=== PATIENT | female | born 1990 | race Hispanic/Latino ===

== ENCOUNTER 2021-12-10 19:24 | Outpatient (CLI) | payer MEDICAID ==
[2021-12-10 19:53] VITALS: BP 100/61
[2021-12-10] MEDS ORDERED: LACTATED RINGERS 1,000 ML ONE (20:06)
[2021-12-10 21:16] LABS: Basophils # (Auto) 0.1 K/mm3 (0.0-0.1); Basophils % (Auto) 0.5 % (0.0-1.8); Eosinophils # (Auto) 0.1 K/mm3 (0.0-0.4); Eosinophils % (Auto) 0.6 % (0.0-4.3); Hematocrit 34.5 % (30.3-42.9); Hemoglobin 11.4 gm/dl (10.1-14.3); Lymphocytes # (Auto) 2.2 K/mm3 (1.2-5.4); Lymphocytes % (Auto) 16.7 % (13.4-35.0); Mean Corpuscular HGB Conc 33 % (30-34); Mean Corpuscular Volume 85 fl (79-97); Monocytes # (Auto) 0.7 K/mm3 (0.0-0.8); Monocytes % (Auto) 5.1 % (0.0-7.3); Platelet Count 203 K/mm3 (140-440); Red Blood Count 4.07 M/mm3 (3.65-5.03); Red Cell Distribution Width 15.6 % (13.2-15.2)
[2021-12-10 22:41] LABS: Amphetamine Screen,Urine TNR; Benzodiazepines Screen,Urine TNR; Cannabinoid Screen,Urine TNR; Cocaine Screen,Urine TNR; Methadone Screen,Urine TNR; Opiate Screen,Urine TNR
[2021-12-10 22:45] LABS: Color,Urine TNR (Yellow)
[2021-12-10 22:46] LABS: Bacteria,Urine TNR /HPF (Negative); RBC,Urine TNR /HPF (0.0-6.0); WBC,Urine TNR /HPF (0.0-6.0)
[2021-12-10 23:08] LABS: RBC,Urine < 1.0 /HPF (0.0-6.0)
[2021-12-10 23:09] LABS: Amphetamine Screen,Urine Negative; Benzodiazepines Screen,Urine Negative; Cannabinoid Screen,Urine Negative; Cocaine Screen,Urine Negative; Methadone Screen,Urine Negative; Opiate Screen,Urine Negative
[2021-12-10 23:10] LABS: Color,Urine Colorless (Yellow)
[2021-12-10] MEDS ORDERED: ACETAMINOPHEN 325 MG TAB PO PRN (23:27)
[2021-12-10] MEDS ORDERED: ONDANSETRON 4 MG/2 ML INJ IV PRN (23:27)
[2021-12-10] MEDS ORDERED: oxyCODONE /ACETAMINOPHEN 5-325MG TAB PO PRN (23:27)
--- NOTE | 2021-12-10 23:31 | History and Physical Report ---
History of Present Illness Date of examination: 12/10/21 Date of admission: 12/10/2021 Chief complaint: my heart rate is high History of present illness: Patient is a at 33w6d presenting with complaint of elevated heart rate. Notes her watch was going off saying her resting heart rate in 120s and up to 150s with standing. Notes dizziness, but denies shortness of breath. Also complains of pain in her upper abdomen, unsure if contractions. +FM. No LOF or vaginal bleeding. 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 Past History Past Medical History: no pertinent history Past Surgical History: no surgical history Family/Genetic History: none Social history: no significant social history - Obstetrical History : 4 Para: 3 Hx # Term Pregnancies: 3 Number of Pregnancies: 0 Spontaneous Abortions: 0 Induced : 0 Number of Living Children: 3 Medications and Allergies Allergies Allergy/AdvReac Type Severity Reaction Status Date / Time No Known Allergies Allergy Unverified 12/30/16 09:50 Active Meds: Active Medications Acetaminophen (Acetaminophen 325 Mg Tab) 650 mg PO Q4H PRN PRN Reason: Pain MILD(1-3)/Fever >100.5/H[place]ISON Ondansetron HCl (Ondansetron 4 Mg/2 Ml Inj) 4 mg IV Q8H PRN PRN Reason: Nausea And Vomiting Oxycodone/Acetaminophen (Oxycodone /Acetaminophen 5-325mg Tab) 1 tab PO Q6H PRN PRN Reason: Pain, Moderate (4-6) Sodium Chloride (Sodium Chloride 0.9% 10 Ml Flush Syringe) 10 ml IV BID TISHA Sodium Chloride (Sodium Chloride 0.9% 10 Ml Flush Syringe) 10 ml IV PRN PRN PRN Reason: LINE FLUSH Review of Systems Cardiovascular: rapid/irregular heart beat, lightheadedness Genitourinary: contractions - Vital Signs Vital signs: Vital Signs Temp Pulse 98.1 F 100 H 12/10/21 19:40 12/10/21 19:40 Temp Pulse Resp BP Pulse Ox 98.1 F 101 H 100/61 94 12/10/21 19:40 12/10/21 23:28 12/10/21 19:52 12/10/21 23:28 Results Result Diagrams: 12/10/21 19:36 Abnormal lab results 12/10/21 12/10/21 Range/Units 19:36 22:30 WBC 12.9 H (4.5-11.0) K/mm3 RDW 15.6 H (13.2-15.2) % Seg Neutrophils % 77.1 H (40.0-70.0) % Seg Neutrophils # 10.0 H (1.8-7.7) K/mm3 Specific [place] 1.000 L (1.003-1.030) All other labs normal. Assessment and Plan - Patient Problems (1) Rapid heart rate Status: Acute Plan to address problem: CBC as above EKG notable for ectopic atrial beats, reviewed by hospitalist and noted to be WNL Plan to admit to observation for further evaluation of continued intermittent tachycardia Consult Cardiology TSH Prior to completion of admission, patient signed out AMA stating she feels fine and this has happened in the past and she saw a personnel arbitrator., Prior to leaving states she will see them again.
--- NOTE | 2021-12-11 13:14 | Electrocardiograph Report ---
[facility] Test Date: 2021-12-10 Test Time: 20:19:41 Pat Name: MORIAH QUINONES Department: Room: Gender: F Primary Special Educator: Guillermo ALEJO : 1990 Requested By: SHANELLE GARSIA Order Number: [id number] Reading MD: Emelina Ulloa Measurements Intervals [place] Rate: 101 P: -68 WA: 151 QRS: 59 QRSD: 89 T: 11 QT: 348 QTc: 452 Interpretive Statements Ectopic atrial tachycardia, unifocal No previous ECG available for comparison Electronically Signed On 12-11-2021 13:14:29 EDT by Emelina Ulloa
== END 2021-12-10 23:48 | disposition home or self-care (01) ==
LOC: TRG 19:24 → APU 19:26 → TRG 23:48
PROVIDERS: ATTEND Student in an Organized Health Care Education/Training Program
DX: O26.893 Other specified pregnancy related conditions, third trimester (principal); R42 Dizziness and giddiness; Z3A.33 33 weeks gestation of pregnancy
CPT/HCPCS: 36415; 59025; 80307; 81001; 82731; 85025; 93005

== ENCOUNTER 2022-01-01 01:27 | Inpatient (IN) | payer MEDICAID ==
[2022-01-01] MEDS ORDERED: CARBOPROST TROMETHAMINE 250 MCG/1 ML INJ IM PRN (05:36)
[2022-01-01] MEDS ORDERED: METHYLERGONOVINE MALEATE 0.2 MG/ML VIAL IM PRN (05:36)
[2022-01-01] MEDS ORDERED: LIDOCAINE (2%) 20 MG/1 ML VIAL 20 ML MDV INFILTRATI ONE (05:36)
[2022-01-01] MEDS ORDERED: ePHEDrine SULFATE 50 MG/1 ML INJ IV PRN ×2 (05:36→19:32)
[2022-01-01] MEDS ORDERED: TERBUTALINE 1 MG/1 ML INJ SUB-Q PRN (05:36)
[2022-01-01] MEDS ORDERED: LOPERAMIDE 2 MG CAP PO PRN (05:36)
[2022-01-01] MEDS ORDERED: miSOPROStol 200 MCG TAB PR PRN (05:36)
[2022-01-01] MEDS ORDERED: ACETAMINOPHEN 325 MG TAB PO PRN (05:36)
[2022-01-01] MEDS ORDERED: ONDANSETRON 4 MG/2 ML INJ IV PRN (05:36)
[2022-01-01] MEDS ORDERED: NALOXONE 0.4 MG/1 ML INJ IV PRN ×2 (05:36→19:32)
[2022-01-01] MEDS ORDERED: OXYTOCIN 10 UNIT/1 ML INJ IM PRN (05:36)
[2022-01-01] MEDS ORDERED: PROMETHAZINE 25 MG TAB PO PRN (05:36)
[2022-01-01] MEDS ORDERED: MINERAL OIL 30 ML ORAL LIQD PO PRN (05:36)
[2022-01-01] MEDS ORDERED: NalbUPHINE 10 MG/1 ML INJ IV PRN (05:36)
[2022-01-01] MEDS ORDERED: BUTORPHANOL 2 MG/1 ML INJ IV PRN ×2 (05:36)
[2022-01-01] MEDS ORDERED: fentaNYL 100 MCG/2 ML INJ IV PRN (05:36)
--- NOTE | 2022-01-01 05:43 | History and Physical Report ---
History of Present Illness Date of examination: 01/01/22 Date of admission: 01/01/2022 Chief complaint: Painful regular contractions. History of present illness: Pt is a 31 y.o. @ 37 wks today who presented to triage for c/o contractions. 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 She walked for an hour and her cervical exam was the same. She continued to have regular painful contractions so she was admitted for therapeutic rest. For this , the patient has been followed by [facility] d/t maternal obesity and renal pyelectasis. pyelectasis has resolved. Her last growth u/s was on 12/02/2021 at 32 weeks. EFW was in the 78%(5-1). Also of note, she has a hx of maternal tachycardia. She was seen by the refractory tile helper on 12/26, wore a \Holter monitor, and was told that her testing so far has been normal. No f/u date has b een scheduled. EDC: 01/22/2022 Gestational Age: 37 weeks on admission Past History : 4 Term Births: 3 Premature Births: 0 Living Children: 3 Para: 3 Mult. Births: 0 Prev : 0 Aborta: 0 Elect. Ab: 0 Spont. Ab: 0 Ectopics: 0 # 1 Delivery date: 2010 Weeks Gestation: 40 labor: yes Delivery type: Hours of labor: 28 Anesthesia type: epidural Delivery location: [facility] Infant Sex: Female weight: 7lbs 7oz Comments: no complications # 2 Delivery date: 2015 Weeks Gestation: 40 labor: no Delivery type: Hours of labor: 12 Anesthesia type: epidural Delivery location: [facility] Infant Sex: Male weight: 7lbs 4oz Comments: no complications # 3 Delivery date: 2019 Weeks Gestation: 37 labor: no Delivery type: Hours of labor: 9 Anesthesia type: epidural Delivery location: [facility] Infant Sex: Male weight: 7lbs 12oz Comments: no complications Past Medical History: Reviewed and updated today: IBS- avoids triggers/food sensitivities Interstitial Cystitis- since 2014 Benign Tachcardia in - saw refractory tile helper 2019 and cleared Bipolar Disease with anxiety- on medications and sees Psychiatrist Past Surgical History: Reviewed and updated today: Negative Past Surgical History Family History Summary: Mother - Has Family History Breast Cancer - Entered On: 06/06/2021 General Comments - FH: Brother has cystic fibrosis, pt reports she's not a carrier MGF- bladder cancer Social History: Patient is Smoking History: Patient has never smoked. Risk Factors: Smoked Tobacco Use: Never smoker Smokeless Tobacco Use: Never Counseled to Quit/Cut Down: yes Passive Smoke Exposure: no HIV High Risk Behavior: no Caffeine Use: 1 drinks per day Exercise: no Exercise Counseling: yes Seatbelt Use: preg-alcoholic counselor % Family History Risk Factors: Family History of VA in 1 Female Relative Age < 65: no Family History of VA in 1 Male Relative Age < 55: no No Dietary Counseling Reason: pn yes Alcohol Use: no Drug Use: no Past Medical History Anesthesia Complications: negative Anemia: negative Autoimmune Disorder: negative Bleeding Disorder: negative Blood Transfusions: negative Breast Disease: negative Diabetes: negative Heart Disease: negative Hypertension: negative Hepatitis/Liver Disease: negative Kidney Disease/UTI: negative Neurologic/Epilepsy/Migraines: negative Phlebitis/Varicosities: negative Psychiatric: positive Pulmonary Disease/Asthma: negative Thyroid Disease: negative Surgery (Non-program aide): Negative Past Surgical History Abnormal PAP: positive, in 2015, normal since CIELO Exposure: negative Infertility: negative Uterine Anomaly: negative Uterine Surgery (not C/S): negative Other Gynecologic Problems: negative Family Hx: Brother has cystic fibrosis, pt reports she's not a carrier MGF- bladder cancer Social Hx: Patient is Smoking History: Patient has never smoked. Infection History Hx of STD: HPV HIV Risk Eval: no Hepatitis B Risk Eval: low risk Personal hx. of genital herpes: no Partner hx. of genital herpes: no Rash, Viral, or Febrile illness since last LMP? no Varicella/Chicken Pox Status: Immunized TB Risk: no Genetic History Congenital Heart Defect: Mom: no Dad: no Erik Disease: Mom: no Dad: no Thalassemia Mom: no Dad: no Neural Tube Defect Mom: no Dad: no Down's Syndrome Mom: no Dad: no Walter-Sachs Mom: no Dad: no Sickle Cell Disease/Trait Mom: no Dad: no Hemophilia Mom: no Dad: no Muscular Dystrophy Mom: no Dad: no Cystic Fibrosis Mom: no Dad: no Bryce Chorea Mom: no Dad: no Mental Retardation Mom: no Dad: no Fragile X Mom: no Dad: no Other Genetic/Chromosomal Disorder Mom: no Dad: no Child w/other defect Mom: no Dad: no Enviromental Exposures Enviromental Exposures Reviewed Xray Exposure: no Medication, drug, or alcohol use since LMP: no Chemical/Other Exposure: no Exposure to Cat Liter: no Hx of Parvovirus (Fifth Disease): no 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 Current Allergies (reviewed today): No known allergies Past History Past Medical History: other (IBS, Bi-polar with anxiety, Benign tachycardia in , Interstitial Cystitis) Past Surgical History: no surgical history VAMP CREASER History: other (Cystic Fibrosis) Family/Genetic History: cancer (Bladder and breast) Social history: no significant social history - Obstetrical History Expected Date of Delivery: 01/22/22 Actual Gestation: 37 Week(s) 0 Day(s) : 4 Para: 3 Hx # Term Pregnancies: 3 Number of Pregnancies: 0 Spontaneous Abortions: 0 Induced : 0 Number of Living Children: 3 Medications and Allergies Allergies Allergy/AdvReac Type Severity Reaction Status Date / Time No Known Allergies Allergy Unverified 12/30/16 09:50 Active Meds: Active Medications Acetaminophen (Acetaminophen 325 Mg Tab) 650 mg PO Q4H PRN PRN Reason: Pain, Mild (1-3) Butorphanol Tartrate (Butorphanol 2 Mg/1 Ml Inj) 1 mg IV Q2H PRN PRN Reason: Pain, Moderate(4-6) LABOR PAIN Butorphanol Tartrate (Butorphanol 2 Mg/1 Ml Inj) 2 mg IV Q2H PRN PRN Reason: Pain , Severe (7-10) Carboprost Tromethamine (Carboprost Tromethamine 250 Mcg/1 Ml Inj) 250 mcg IM ONCE PRN PRN Reason: Uterine Bleeding Ephedrine Sulfate (Ephedrine Sulfate 50 Mg/1 Ml Inj) 10 mg IV Q2M PRN PRN Reason: Hypotension Fentanyl (Fentanyl 100 Mcg/2 Ml Inj) 100 mcg IV Q2H PRN PRN Reason: Pain,Severe (7-10) LABOR PAIN Lactated Ringer's (Lactated Ringers) 1,000 mls @ 125 mls/hr IV DIRECT TISHA Oxytocin/Sodium Chloride (Pitocin/Ns 30 Unit/500ml) 30 units in 500 mls @ 40 mls/hr IV TITR TISHA; Protocol Lidocaine (Lidocaine (2%) 20 Mg/1 Ml Vial 20 Ml Mdv) 20 ml INFILTRATI ONCE ONE Stop: 01/01/22 05:37 Loperamide HCl (Loperamide 2 Mg Cap) 2 mg PO ONCE PRN PRN Reason: give with Hemabate Methylergonovine Maleate (Methylergonovine Maleate 0.2 Mg/Ml Vial) 0.2 mg IM ONCE PRN PRN Reason: Uterine Bleeding Mineral Oil (Mineral Oil 30 Ml Oral Liqd) 30 ml PO QHS PRN PRN Reason: Constipation Misoprostol (Misoprostol 200 Mcg Tab) 800 mcg NE ONCE PRN PRN Reason: Uterine Bleeding Nalbuphine HCl (Nalbuphine 10 Mg/1 Ml Inj) 10 mg IV Q2H PRN PRN Reason: Pain, Moderate (4-6) Naloxone HCl (Naloxone 0.4 Mg/1 Ml Inj) 0.1 mg IV Q2MIN PRN PRN Reason: Res Rate </= 8 or 02 SAT < 92% Ondansetron HCl (Ondansetron 4 Mg/2 Ml Inj) 4 mg IV Q8H PRN PRN Reason: Nausea And Vomiting Oxytocin (Oxytocin 10 Unit/1 Ml Inj) 10 unit IM ONCE PRN PRN Reason: Uterine Bleeding Promethazine HCl (Promethazine 25 Mg Tab) 25 mg PO Q6H PRN PRN Reason: Nausea And Vomiting Terbutaline Sulfate (Terbutaline 1 Mg/1 Ml Inj) 0.25 mg SUB-Q ONCE PRN PRN Reason: Hyperstimulation/Hypertonicity Review of Systems Genitourinary: contractions - Vital Signs Vital signs: Vital Signs Pulse BP Pulse Ox 100 H 130/72 98 01/01/22 02:13 01/01/22 02:13 01/01/22 02:13 Temp Pulse Resp BP Pulse Ox 98.2 F 116 H 122/72 96 01/01/22 02:17 01/01/22 05:36 01/01/22 05:29 01/01/22 05:36 - Physical Exam Cardiovascular: Regular rate Lungs: Positive: Normal air movement Abdomen: Positive: normal appearance, soft Genitourinary (Female): Positive: normal external genitalia, normal perenium Vulva: both: normal Vagina: Positive: normal moisture Uterus: Positive: enlarged (Normal uterus. ) Extremities: Positive: normal - Obstetrical FHR: category 1 Cervical Dilatation: 3.5 (No SROM.) Cervical Effacement Percentage: 50 station: -2 Uterine Contraction Frequency (min): 4-6 Uterine Contraction Duration: 60-90 Uterine Contraction Pattern: Regular Uterine Tone Measurement Phase: Resting Uterine Contraction Intensity: Mild Results Result Diagrams: 01/01/22 04:00 All other labs normal. GBS NEGATIVE HBsAg Screen Negative Negative *1 RPR Non Reactive Non Reactive *2 Rubella Antibodies, IgG [L] <0.90 index Immune >0.99 *3 Non-immune <0.90 Equivocal 0.90 - 0.99 Immune >0.99 ABO Grouping B *4 Rh Factor Positive *5 Please note: Prior records for this patient's ABO / Rh type are not available for additional verification. Antibody Screen Negative Negative *6 WBC [H] 11.7 x10E3/uL 3.4-10.8 *7 RBC 4.24 x10E6/uL 3.77-5.28 *8 Hemoglobin 11.7 g/dL 11.1-15.9 *9 Hematocrit 36.1 % 34.0-46.6 *10 MCV 85 fL 79-97 *11 MCH 27.6 pg 26.6-33.0 *12 MCHC 32.4 g/dL 31.5-35.7 *13 RDW 13.1 % 11.7-15.4 *14 Platelets 295 x10E3/uL 150-450 *15 Neutrophils 71 % Not Estab. *16 Lymphs 23 % Not Estab. *17 Monocytes 4 % Not Estab. *18 Eos 1 % Not Estab. *19 Basos 0 % Not Estab. *20 ! Immature Cells <No Reported Value> *21 Neutrophils (Absolute) [H] 8.2 x10E3/uL 1.4-7.0 *22 Lymphs (Absolute) 2.7 x10E3/uL 0.7-3.1 *23 Monocytes(Absolute) 0.5 x10E3/uL 0.1-0.9 *24 Eos (Absolute) 0.1 x10E3/uL 0.0-0.4 *25 Baso (Absolute) 0.0 x10E3/uL 0.0-0.2 *26 ! Immature Granulocytes 1 % Not Estab. *27 ! Immature Grans (Abs) 0.1 x10E3/uL 0.0-0.1 *28 ! NRBC <No Reported Value> *29 Hematology Comments: <No Reported Value> *30 Tests: (4) HB Solu + Rflx Fra (187518) Hemoglobin (Hgb) Solubility Negative Negative *44 Tests: (5) HIV Ab/p24 Ag with Reflex ([id number]) HIV Ab/p24 Ag Screen Non Reactive Non Reactive *45 HIV Negative HIV-1/HIV-2 antibodies and HIV-1 p24 antigen were NOT detected. There is no laboratory evidence of HIV infection. Tests: (6) Varicella-Zoster V Ab, IgG ([id number]) ! Varicella Zoster IgG 449 index Immune >165 *46 Negative <135 Equivocal 135 - 165 Positive >165 A positive result generally indicates exposure to the pathogen or administration of specific immunoglobulins, but it is not indication of active infection or stage of disease. Tests: (7) HCV Antibody reflex to HILARIO ([id number]) HCV Ab <0.1 s/co ratio 0.0-0.9 *47 Tests: (8) Interpretation: ([id number]) ! Interpretation: SPRCS *48 Negative Not infected with HCV, unless recent infection is suspected or other evidence exists to indicate HCV infection. Effective August 26, 2021 HCV Antibody reflex to HILARIO will be made non-orderable. This will affect any Custom Profile that includes [id number] HCV Antibody reflex to HILARIO. [facility] offers order code [id number] HCV Antibody RFX to Quant PCR as an alternative. Assessment and Plan A: 31 y.o. @ 37 wks, early labor. Bi-polar disorder, maternal tachycardia, obesity. - Patient Problems (1) 37 weeks gestation of Current Visit: Yes Status: Acute Plan to address problem: Admit to labor and delivery for therapeutic rest. Initiate IV. Draw admission labs. Pain management: IV pain medication if contraction pain becomes more painful an d regular. - Epidural order placed if patient goes into active labor. Reassess cervix after administration of medication and after patient rest. Will admit for labor if pt becomes active. Continuous EFM. (2) Bipolar 1 disorder Current Visit: Yes Status: Acute Plan to address problem: After delivery, will need EPDS. Monitor for s/sx of depression. (3) Obesity complicating Current Visit: Yes Status: Acute Qualifiers: Trimester: third trimester Qualified Code(s): O99.213 - Obesity complicating , third trimester Plan to address problem: When in active labor, consider AROM and placement of internals if there is difficulty tracing heart rate. (4) Rapid heart rate Current Visit: Yes Status: Acute Plan to address problem: Monitor maternal heart rate during admission.
[2022-01-01] MEDS ORDERED: LACTATED RINGERS 1,000 ML IV SCH (05:45)
[2022-01-01] MEDS ORDERED: OXYTOCIN DRIP 30 UNITS/500 ML BAG IV SCH ×2 (06:00→17:00)
[2022-01-01 07:07] LABS: Hemoglobin 11.3 gm/dl (10.1-14.3); Mean Corpuscular HGB Conc 33 % (30-34); Mean Corpuscular Volume 85 fl (79-97); Platelet Count 177 K/mm3 (140-440); Red Blood Count 4.01 M/mm3 (3.65-5.03); Red Cell Distribution Width 15.9 % (13.2-15.2)
--- NOTE | 2022-01-01 07:57 | Event Note ---
Date: 01/01/22 pt states she had clear discharge this morning after exam, no continued leaking. Had patient cough, no fluid noted on perineum. Chux, vulva and pubic hair dry. SVE done /2, BOW palpated w/o any fluid noted. Discussed gel used to perform SVE is clear and can feel wet. Pt also states "pain is not my issue, I just can't sleep." Pt given dose of fentanyl as ordered. Nurse will reexamine around noon - or sooner if s/s labor, for cervical change. if no cervical change, will plan d/c home.
--- NOTE | 2022-01-01 12:45 | Progress Note ---
Assessment and Plan Pt states pain continues to be intense and she got only small amount of relief from IV sedation. SVE now 5/-1. Pt may have epidural PRN. RN informed pt is now inpatient as labor. - Patient Problems (1) 37 weeks gestation of Current Visit: Yes Status: Acute Subjective - Subjective Date of service: 01/01/22 Principal diagnosis: IUP @ 37+0 weeks Patient reports: contractions, no new complaints Objective - Vital Signs Vital Signs: Vital Signs - 12hr 01/01/22 01/01/22 01/01/22 02:13 02:17 02:18 Temperature 98.2 F Pulse Rate 100 H 102 H Blood Pressure 130/72 O2 Sat by Pulse 98 97 Oximetry 01/01/22 01/01/22 01/01/22 02:23 02:28 02:33 Temperature Pulse Rate 94 H 89 99 H Blood Pressure O2 Sat by Pulse 97 98 97 Oximetry 01/01/22 01/01/22 01/01/22 02:38 02:43 02:48 Temperature Pulse Rate 97 H 94 H 95 H Blood Pressure O2 Sat by Pulse 96 96 96 Oximetry 01/01/22 01/01/22 01/01/22 02:53 02:58 03:03 Temperature Pulse Rate 86 97 H 93 H Blood Pressure O2 Sat by Pulse 97 96 96 Oximetry 01/01/22 01/01/22 01/01/22 03:08 03:13 03:18 Temperature Pulse Rate 93 H 89 86 Blood Pressure O2 Sat by Pulse 96 97 97 Oximetry 01/01/22 01/01/22 01/01/22 03:23 03:28 03:33 Temperature Pulse Rate 85 97 H 88 Blood Pressure O2 Sat by Pulse 98 98 98 Oximetry 01/01/22 01/01/22 01/01/22 03:38 03:43 03:48 Temperature Pulse Rate 92 H 92 H 98 H Blood Pressure O2 Sat by Pulse 98 97 97 Oximetry 01/01/22 01/01/22 01/01/22 03:53 05:16 05:21 Temperature Pulse Rate 91 H 122 H 115 H Blood Pressure O2 Sat by Pulse 97 97 97 Oximetry 01/01/22 01/01/22 01/01/22 05:26 05:29 05:31 Temperature Pulse Rate 120 H 112 H 113 H Blood Pressure 122/72 O2 Sat by Pulse 97 97 Oximetry 01/01/22 01/01/22 01/01/22 05:36 05:41 05:46 Temperature Pulse Rate 116 H 104 H 107 H Blood Pressure O2 Sat by Pulse 96 96 96 Oximetry 01/01/22 01/01/22 01/01/22 05:51 05:56 06:01 Temperature Pulse Rate 101 H 129 H 108 H Blood Pressure O2 Sat by Pulse 96 96 97 Oximetry 01/01/22 01/01/22 01/01/22 06:24 06:29 06:34 Temperature Pulse Rate 98 H 110 H 105 H Blood Pressure O2 Sat by Pulse 96 96 96 Oximetry 01/01/22 01/01/22 01/01/22 06:39 06:44 06:46 Temperature Pulse Rate 101 H 105 H 102 H Blood Pressure O2 Sat by Pulse 95 95 94 Oximetry 01/01/22 01/01/22 01/01/22 06:49 06:54 06:59 Temperature Pulse Rate 101 H 101 H 110 H Blood Pressure O2 Sat by Pulse 96 96 97 Oximetry 01/01/22 01/01/22 01/01/22 07:03 07:04 07:09 Temperature Pulse Rate 90 94 H 103 H Blood Pressure O2 Sat by Pulse 88 96 96 Oximetry 01/01/22 01/01/22 01/01/22 07:14 07:19 07:24 Temperature Pulse Rate 111 H 125 H 99 H Blood Pressure O2 Sat by Pulse 97 97 96 Oximetry 01/01/22 01/01/22 01/01/22 07:29 07:34 07:39 Temperature Pulse Rate 112 H 112 H 102 H Blood Pressure 122/70 O2 Sat by Pulse 97 97 96 Oximetry 01/01/22 01/01/22 01/01/22 07:44 07:49 07:54 Temperature Pulse Rate 107 H 95 H 100 H Blood Pressure O2 Sat by Pulse 97 97 96 Oximetry 01/01/22 01/01/22 01/01/22 07:59 08:04 08:09 Temperature Pulse Rate 84 99 H 99 H Blood Pressure O2 Sat by Pulse 96 96 96 Oximetry 01/01/22 01/01/22 01/01/22 08:14 08:19 08:24 Temperature Pulse Rate 97 H 110 H 99 H Blood Pressure O2 Sat by Pulse 96 96 96 Oximetry 01/01/22 01/01/22 01/01/22 08:29 08:34 08:39 Temperature Pulse Rate 98 H 102 H 103 H Blood Pressure O2 Sat by Pulse 96 95 96 Oximetry 01/01/22 01/01/22 01/01/22 08:44 08:49 08:54 Temperature Pulse Rate 102 H 109 H 115 H Blood Pressure O2 Sat by Pulse 96 96 96 Oximetry 01/01/22 01/01/22 01/01/22 08:59 09:04 09:09 Temperature Pulse Rate 101 H 122 H 103 H Blood Pressure O2 Sat by Pulse 95 96 95 Oximetry 01/01/22 01/01/22 01/01/22 09:14 09:19 09:22 Temperature Pulse Rate 138 H 99 H 88 Blood Pressure O2 Sat by Pulse 96 96 93 Oximetry 01/01/22 01/01/22 01/01/22 09:24 09:29 09:34 Temperature Pulse Rate 127 H 103 H 98 H Blood Pressure O2 Sat by Pulse 97 96 96 Oximetry 01/01/22 01/01/22 01/01/22 09:39 09:44 09:49 Temperature Pulse Rate 120 H 122 H 114 H Blood Pressure O2 Sat by Pulse 97 97 96 Oximetry 01/01/22 01/01/22 01/01/22 09:54 09:59 10:04 Temperature Pulse Rate 108 H 97 H 114 H Blood Pressure O2 Sat by Pulse 96 96 96 Oximetry 01/01/22 01/01/22 01/01/22 10:09 10:14 10:19 Temperature Pulse Rate 100 H 109 H 99 H Blood Pressure O2 Sat by Pulse 96 96 97 Oximetry 01/01/22 01/01/22 01/01/22 10:24 10:29 10:34 Temperature Pulse Rate 105 H 109 H 105 H Blood Pressure O2 Sat by Pulse 97 97 96 Oximetry 01/01/22 01/01/22 01/01/22 10:39 10:44 10:49 Temperature Pulse Rate 109 H 115 H 105 H Blood Pressure O2 Sat by Pulse 97 97 97 Oximetry 01/01/22 01/01/22 01/01/22 10:54 10:59 11:04 Temperature Pulse Rate 104 H 97 H 96 H Blood Pressure O2 Sat by Pulse 96 95 97 Oximetry 01/01/22 01/01/22 01/01/22 11:09 11:14 11:19 Temperature Pulse Rate 95 H 110 H 108 H Blood Pressure O2 Sat by Pulse 97 96 96 Oximetry 01/01/22 01/01/22 01/01/22 11:24 11:29 11:34 Temperature Pulse Rate 105 H 122 H 120 H Blood Pressure O2 Sat by Pulse 96 96 96 Oximetry 01/01/22 01/01/22 01/01/22 11:39 11:44 11:49 Temperature Pulse Rate 115 H 113 H 111 H Blood Pressure O2 Sat by Pulse 95 97 96 Oximetry 01/01/22 01/01/22 01/01/22 11:54 11:59 12:04 Temperature Pulse Rate 109 H 109 H 116 H Blood Pressure O2 Sat by Pulse 96 96 96 Oximetry 01/01/22 01/01/22 01/01/22 12:09 12:14 12:19 Temperature Pulse Rate 137 H 108 H 110 H Blood Pressure O2 Sat by Pulse 97 96 97 Oximetry 01/01/22 01/01/22 01/01/22 12:24 12:29 12:34 Temperature Pulse Rate 119 H 118 H 123 H Blood Pressure O2 Sat by Pulse 96 96 96 Oximetry 01/01/22 12:39 Temperature Pulse Rate 113 H Blood Pressure O2 Sat by Pulse 96 Oximetry - Exam Breasts: normal Cardiovascular: Regular rate Lungs: Normal air movement Abdomen: Present: normal appearance, soft Vulva: both: normal Uterus: Present: normal FHR: auscultation normal, category 1 Uterine Contraction Monitor Mode: External Cervical Dilatation: 5 Cervical Effacement Percentage: 70 station: -1 Uterine Contraction Frequency (min): 2-4 Uterine Contraction Duration: 60 Uterine Contraction Pattern: Regular Uterine Tone Measurement Phase: Contraction Uterine Contraction Intensity: Mild Extremities: normal Deep Tendon Reflex Grade: Normal +2 - Labs Labs: Abnormal Labs 01/01/22 04:00 RDW 15.9 H Laboratory Results - last 24 hr 01/01/22 01/01/22 01/01/22 04:00 04:00 04:00 WBC 10.5 RBC 4.01 Hgb 11.3 Hct 34.0 MCV 85 MCH 28 MCHC 33 RDW 15.9 H Plt Count 177 Syphilis IgG/IgM Ab Nonreactive SARS-CoV-2 (PCR) Blood Type B POSITIVE Antibody Screen Negative 01/01/22 10:50 WBC RBC Hgb Hct MCV MCH MCHC RDW Plt Count Syphilis IgG/IgM Ab SARS-CoV-2 (PCR) Negative Blood Type Antibody Screen
--- NOTE | 2022-01-01 16:28 | Progress Note ---
Assessment and Plan SVE now /1, head well applied. AROM clear fluid, plan to start pitocin. pt states she will want epidural once pitocin has been started. - Patient Problems (1) 37 weeks gestation of Current Visit: Yes Status: Acute Subjective - Subjective Date of service: 01/01/22 Principal diagnosis: IUP @ 37+0 weeks Patient reports: contractions, no new complaints Objective - Vital Signs Vital Signs: Vital Signs - 12hr 01/01/22 01/01/22 01/01/22 05:16 05:21 05:26 Pulse Rate 122 H 115 H 120 H Blood Pressure O2 Sat by Pulse 97 97 97 Oximetry 01/01/22 01/01/22 01/01/22 05:29 05:31 05:36 Pulse Rate 112 H 113 H 116 H Blood Pressure 122/72 O2 Sat by Pulse 97 96 Oximetry 01/01/22 01/01/22 01/01/22 05:41 05:46 05:51 Pulse Rate 104 H 107 H 101 H Blood Pressure O2 Sat by Pulse 96 96 96 Oximetry 01/01/22 01/01/22 01/01/22 05:56 06:01 06:24 Pulse Rate 129 H 108 H 98 H Blood Pressure O2 Sat by Pulse 96 97 96 Oximetry 01/01/22 01/01/22 01/01/22 06:29 06:34 06:39 Pulse Rate 110 H 105 H 101 H Blood Pressure O2 Sat by Pulse 96 96 95 Oximetry 01/01/22 01/01/22 01/01/22 06:44 06:46 06:49 Pulse Rate 105 H 102 H 101 H Blood Pressure O2 Sat by Pulse 95 94 96 Oximetry 01/01/22 01/01/22 01/01/22 06:54 06:59 07:03 Pulse Rate 101 H 110 H 90 Blood Pressure O2 Sat by Pulse 96 97 88 Oximetry 01/01/22 01/01/22 01/01/22 07:04 07:09 07:14 Pulse Rate 94 H 103 H 111 H Blood Pressure O2 Sat by Pulse 96 96 97 Oximetry 01/01/22 01/01/22 01/01/22 07:19 07:24 07:29 Pulse Rate 125 H 99 H 112 H Blood Pressure O2 Sat by Pulse 97 96 97 Oximetry 01/01/22 01/01/22 01/01/22 07:34 07:39 07:44 Pulse Rate 112 H 102 H 107 H Blood Pressure 122/70 O2 Sat by Pulse 97 96 97 Oximetry 01/01/22 01/01/22 01/01/22 07:49 07:54 07:59 Pulse Rate 95 H 100 H 84 Blood Pressure O2 Sat by Pulse 97 96 96 Oximetry 01/01/22 01/01/22 01/01/22 08:04 08:09 08:14 Pulse Rate 99 H 99 H 97 H Blood Pressure O2 Sat by Pulse 96 96 96 Oximetry 01/01/22 01/01/22 01/01/22 08:19 08:24 08:29 Pulse Rate 110 H 99 H 98 H Blood Pressure O2 Sat by Pulse 96 96 96 Oximetry 01/01/22 01/01/22 01/01/22 08:34 08:39 08:44 Pulse Rate 102 H 103 H 102 H Blood Pressure O2 Sat by Pulse 95 96 96 Oximetry 01/01/22 01/01/22 01/01/22 08:49 08:54 08:59 Pulse Rate 109 H 115 H 101 H Blood Pressure O2 Sat by Pulse 96 96 95 Oximetry 01/01/22 01/01/22 01/01/22 09:04 09:09 09:14 Pulse Rate 122 H 103 H 138 H Blood Pressure O2 Sat by Pulse 96 95 96 Oximetry 01/01/22 01/01/22 01/01/22 09:19 09:22 09:24 Pulse Rate 99 H 88 127 H Blood Pressure O2 Sat by Pulse 96 93 97 Oximetry 01/01/22 01/01/22 01/01/22 09:29 09:34 09:39 Pulse Rate 103 H 98 H 120 H Blood Pressure O2 Sat by Pulse 96 96 97 Oximetry 01/01/22 01/01/22 01/01/22 09:44 09:49 09:54 Pulse Rate 122 H 114 H 108 H Blood Pressure O2 Sat by Pulse 97 96 96 Oximetry 01/01/22 01/01/22 01/01/22 09:59 10:04 10:09 Pulse Rate 97 H 114 H 100 H Blood Pressure O2 Sat by Pulse 96 96 96 Oximetry 01/01/22 01/01/22 01/01/22 10:14 10:19 10:24 Pulse Rate 109 H 99 H 105 H Blood Pressure O2 Sat by Pulse 96 97 97 Oximetry 01/01/22 01/01/22 01/01/22 10:29 10:34 10:39 Pulse Rate 109 H 105 H 109 H Blood Pressure O2 Sat by Pulse 97 96 97 Oximetry 01/01/22 01/01/22 01/01/22 10:44 10:49 10:54 Pulse Rate 115 H 105 H 104 H Blood Pressure O2 Sat by Pulse 97 97 96 Oximetry 01/01/22 01/01/22 01/01/22 10:59 11:04 11:09 Pulse Rate 97 H 96 H 95 H Blood Pressure O2 Sat by Pulse 95 97 97 Oximetry 01/01/22 01/01/22 01/01/22 11:14 11:19 11:24 Pulse Rate 110 H 108 H 105 H Blood Pressure O2 Sat by Pulse 96 96 96 Oximetry 01/01/22 01/01/22 01/01/22 11:29 11:34 11:39 Pulse Rate 122 H 120 H 115 H Blood Pressure O2 Sat by Pulse 96 96 95 Oximetry 01/01/22 01/01/22 01/01/22 11:44 11:49 11:54 Pulse Rate 113 H 111 H 109 H Blood Pressure O2 Sat by Pulse 97 96 96 Oximetry 01/01/22 01/01/22 01/01/22 11:59 12:04 12:09 Pulse Rate 109 H 116 H 137 H Blood Pressure O2 Sat by Pulse 96 96 97 Oximetry 01/01/22 01/01/22 01/01/22 12:14 12:19 12:24 Pulse Rate 108 H 110 H 119 H Blood Pressure O2 Sat by Pulse 96 97 96 Oximetry 01/01/22 01/01/22 01/01/22 12:29 12:34 12:39 Pulse Rate 118 H 123 H 113 H Blood Pressure O2 Sat by Pulse 96 96 96 Oximetry 01/01/22 01/01/22 01/01/22 12:44 12:49 12:54 Pulse Rate 102 H 117 H 124 H Blood Pressure O2 Sat by Pulse 97 97 96 Oximetry 01/01/22 01/01/22 01/01/22 12:59 13:04 13:09 Pulse Rate 124 H 126 H 113 H Blood Pressure O2 Sat by Pulse 96 97 96 Oximetry 01/01/22 01/01/22 01/01/22 13:56 14:01 14:06 Pulse Rate 135 H 139 H 131 H Blood Pressure O2 Sat by Pulse 97 97 97 Oximetry 01/01/22 01/01/22 01/01/22 14:11 14:16 14:21 Pulse Rate 128 H 130 H 131 H Blood Pressure O2 Sat by Pulse 97 97 96 Oximetry 01/01/22 01/01/22 01/01/22 14:26 14:31 14:36 Pulse Rate 136 H 127 H 133 H Blood Pressure 127/71 O2 Sat by Pulse 96 96 97 Oximetry 01/01/22 01/01/22 01/01/22 14:41 14:46 14:51 Pulse Rate 134 H 138 H 131 H Blood Pressure O2 Sat by Pulse 96 95 96 Oximetry 01/01/22 01/01/22 01/01/22 14:53 14:56 15:01 Pulse Rate 127 H 132 H 130 H Blood Pressure O2 Sat by Pulse 94 96 96 Oximetry 01/01/22 01/01/22 01/01/22 15:06 15:11 15:16 Pulse Rate 127 H 129 H 123 H Blood Pressure O2 Sat by Pulse 95 96 95 Oximetry 01/01/22 01/01/22 01/01/22 15:21 15:26 15:31 Pulse Rate 141 H 129 H 139 H Blood Pressure O2 Sat by Pulse 96 96 97 Oximetry 01/01/22 01/01/22 01/01/22 15:36 15:41 15:46 Pulse Rate 128 H 135 H 133 H Blood Pressure O2 Sat by Pulse 95 96 96 Oximetry 01/01/22 01/01/22 01/01/22 15:51 15:56 16:01 Pulse Rate 125 H 129 H 133 H Blood Pressure O2 Sat by Pulse 96 95 96 Oximetry 01/01/22 01/01/22 01/01/22 16:12 16:17 16:22 Pulse Rate 123 H 145 H 125 H Blood Pressure O2 Sat by Pulse 96 96 97 Oximetry - Exam Cardiovascular: Regular rate Lungs: Normal air movement Abdomen: Present: normal appearance, soft Vulva: both: normal Uterus: Present: normal, fundal height above umbilicus FHR: category 1 Uterine Contraction Monitor Mode: External Cervical Dilatation: 6 Cervical Effacement Percentage: 70 station: -1 Uterine Contraction Frequency (min): 2-6 Uterine Contraction Duration: 60 Uterine Contraction Pattern: Regular Uterine Tone Measurement Phase: Contraction Uterine Contraction Intensity: Mild - Labs Labs: Abnormal Labs 01/01/22 04:00 RDW 15.9 H Laboratory Results - last 24 hr 01/01/22 01/01/22 01/01/22 04:00 04:00 04:00 WBC 10.5 RBC 4.01 Hgb 11.3 Hct 34.0 MCV 85 MCH 28 MCHC 33 RDW 15.9 H Plt Count 177 Syphilis IgG/IgM Ab Nonreactive SARS-CoV-2 (PCR) Blood Type B POSITIVE Antibody Screen Negative 01/01/22 10:50 WBC RBC Hgb Hct MCV MCH MCHC RDW Plt Count Syphilis IgG/IgM Ab SARS-CoV-2 (PCR) Negative Blood Type Antibody Screen
--- NOTE | 2022-01-01 19:42 | Anesthesia Consultation ---
Anesthesia Consult and Med Hx Date of service: 01/01/22 - Airway Anesthetic Teeth Evaluation: Good ROM Head & Neck: Adequate Mental/Hyoid Distance: Adequate Mallampati Class: Class II Intubation Access Assessment: Good - Pulmonary Exam CTA: Yes - Cardiac Exam Cardiac Exam: RRR - Pre-Operative Health Status ASA Pre-Surgery Classification: ASA2 Proposed Anesthetic Plan: Epidural - Pulmonary Hx Asthma: No - Cardiovascular System Hx Hypertension: No - Central Nervous System Hx Seizures: No Hx Psychiatric Problems: Yes (bipolar disorder) - Endocrine Hx Renal Disease: No Hx Hypothyroidism: No Hx Hyperthyroidism: No - Hematic Hx Anemia: No Hx Sickle Cell Disease: No - Other Systems Hx Alcohol Use: No
[2022-01-01] MEDS ORDERED: fentaNYL-BUPIV 2 MCG/ML-0.125% 200 MCG/100 ML BAG EPIDURAL SCH (20:00)
--- NOTE | 2022-01-01 21:15 | Procedure Note ---
OB Delivery Note - Delivery Date of Delivery: 01/01/22 Surgeon: OWEN VILLAR Estimated blood loss: other (400cc) - Vaginal Delivery presentation: vertex Delivery position: OA Delivery augmentation: rupture of membranes, pitocin Delivery monitor: external FHT, external uterine Route of delivery: Delivery placenta: spontaneous Delivery cord: 3 umbilical vessels Episiotomy: none Delivery laceration: 1st degree Delivery repair: vicryl Anesthesia: epidural Delivery comments: of over intact perineum. to mother's chest for skin to skin. Cord clamped 1 minute. Father cut the cord. Spontaneous delivery of placenta, intact, 3 vessels noted. Perineum and vaginal inspected, first-degree perineal laceration repaired with 3-0 Vicryl.. Fundus firm, minimal bleeding noted. left in stable condition in the care of RN. Sponge count correct. - Infant A at 1 minute: 8 at 5 minutes: 9 Infant Gender: Male
[2022-01-02] MEDS ORDERED: ACETAMINOPHEN 325 MG TAB PO PRN (00:06)
[2022-01-02] MEDS ORDERED: diphenhydrAMINE 25 MG CAP PO PRN (00:06)
[2022-01-02] MEDS ORDERED: MAGNESIUM HYDROXIDE (MOM) ORAL LIQD UDC PO PRN (00:06)
[2022-01-02] MEDS ORDERED: PROMETHAZINE 25 MG TAB PO PRN (00:06)
[2022-01-02] MEDS ORDERED: oxyCODONE /ACETAMINOPHEN 5-325MG TAB PO PRN (00:06)
[2022-01-02] MEDS ORDERED: WITCH HAZEL/ GLYCERIN PAD TP PRN (00:06)
[2022-01-02] MEDS ORDERED: LANOLIN/ZINC/DIMETHICONE (LANSINOH) 7 GM TP PRN (00:06)
[2022-01-02] MEDS: IBUPROFEN 800 MG TAB PO SCH ×4 (00:23→17:23)
[2022-01-02] MEDS: DOCUSATE SODIUM 100 MG CAP PO SCH ×3 (00:24→21:50)
[2022-01-02] MEDS ORDERED: MEASLES, MUMPS & RUBELLA 12,500 UNIT/0.5 ML VACCINE SUB-Q ONE (06:00)
[2022-01-02] MEDS ORDERED: TETANUS,DIPH,PERTUSS(ACELL) VACCINE 0.5 ML SYRINGE IM ONE (06:00)
[2022-01-02 08:27] LABS: Hematocrit 30.7 % (30.3-42.9)
[2022-01-02] MEDS ORDERED: PRENATAL VIT27-FE FUMARATE-FOLIC ACID VIT TAB PO SCH (10:00)
--- NOTE | 2022-01-02 14:53 | Post Anesthesia Evaluation ---
- Post Anesthesia Evaluation Patient Participated: Yes Airway Patent: Yes Stable Respiratory Function: Yes Nausea/Vomiting: No Temp > 96.8F: Yes Pain Manageable: Yes Adequeate Hydration: Yes Anesthesia Complications: No Block Receding Appropriately: Yes Patient on Ventilator: No
--- NOTE | 2022-01-02 20:56 | Progress Note ---
Assessment and Plan A: 31 y.o. s/p . - Patient Problems (1) Normal delivery at term Current Visit: Yes Status: Acute Plan to address problem: Continue with care. Anticipate discharge home on 01/03. Subjective - Subjective Date of service: 01/02/22 Principal diagnosis: s/p Interval history: Pt doing well. Denies chest pain, feeling lightheaded, dizzy. She has a history of tachycardia. She also has a hx of Bi-polar disorder. Denies s/sx of depression. Patient reports: appetite normal, voiding normally, pain well controlled, ambulating normally Wellman: doing well, other (Has been getting glucose levels.) Objective - Vital Signs Latest vital signs: Vital Signs Temp Pulse Resp BP BP Pulse Ox Pulse Ox 01/02/22 16:31 97.6 F 76 18 120/78 97 01/02/22 12:02 97.4 F L 83 18 134/83 98 01/02/22 11:15 16 01/02/22 08:54 100 01/02/22 08:16 98.0 F 78 18 130/81 98 01/02/22 05:35 98 01/02/22 05:00 98.8 F 77 18 115/79 01/02/22 04:10 98 01/02/22 01:35 98 01/01/22 23:45 98 01/01/22 23:35 98.9 F 92 H 18 106/61 97 01/01/22 22:50 99 H 95 01/01/22 22:45 90 95 01/01/22 22:42 96 H 94 01/01/22 22:40 98 H 95 01/01/22 22:37 90 17 111/59 111/59 01/01/22 22:35 97 H 94 01/01/22 22:30 102 H 94 01/01/22 22:25 103 H 94 01/01/22 22:24 108 H 94 01/01/22 22:22 95 H 18 111/59 111/59 96 01/01/22 22:20 97 H 96 01/01/22 22:18 96 H 94 01/01/22 22:15 99 H 95 01/01/22 22:10 92 H 95 01/01/22 22:07 98 H 117/57 94 01/01/22 22:06 95 H 117/57 96 01/01/22 22:05 102 H 96 01/01/22 22:00 91 H 96 01/01/22 21:55 98 H 94 01/01/22 21:52 93 H 93 H 112/58 112/58 95 01/01/22 21:50 114 H 93 01/01/22 21:45 97 H 94 01/01/22 21:42 100 H 94 01/01/22 21:40 104 H 96 01/01/22 21:37 104 H 16 117/55 117/55 96 01/01/22 21:35 99 H 94 01/01/22 21:30 96 H 94 01/01/22 21:25 95 H 95 01/01/22 21:24 96 H 94 01/01/22 21:22 92 H 17 111/57 111/57 94 01/01/22 21:20 98 H 96 01/01/22 21:15 122 H 95 01/01/22 21:10 117 H 95 01/01/22 21:09 97.9 F 01/01/22 21:07 118 H 113/60 01/01/22 21:05 121 H 117/56 95 01/01/22 21:00 121 H 126/58 97 Intake and Output 01/02/22 01/02/22 01/02/22 06:59 14:59 22:59 Output Total 1200 500 Balance -1200 -500 Output: Urine 1200 500 Void 1200 500 Other: Total, Output Amount 300 500 # Voids Void 1 1 - Exam Cardiovascular: Present: Regular rate Lungs: Present: Normal air movement Abdomen: Present: normal appearance, soft Vulva: both: normal Uterus: Present: normal, firm Extremities: Present: normal - Labs Labs: Abnormal lab results 01/02/22 Range/Units 07:32 Hgb 10.0 L (10.1-14.3) gm/dl
[2022-01-03] MEDS: IBUPROFEN 800 MG TAB PO SCH ×3 (05:57→17:08)
--- NOTE | 2022-01-03 08:48 | Discharge Summary ---
Providers - Providers Date of Admission: 01/01/22 05:36 Date of discharge: 01/03/22 Attending physician: MONALISA CHAN 01/02/22 00:06 Consult to Basketball Player [CONS] Routine Reason For Exam: assistance with , SNS Primary care physician: MONALISA CHAN Hospitalization Reason for admission: Labor Condition: Good Pertinent studies: post delivery H&H 10.0/30.7; HR WNL Procedures: Hospital course: normal delivery and course Disposition: 01 HOME / SELF CARE / HOMELESS Final Discharge Diagnosis (Prints w/discharge instructions): Time spent for discharge: 20 - Discharge Diagnoses (1) 37 weeks gestation of Status: Acute (2) Normal delivery at term Status: Acute Core Measure Documentation - Palliative Care Palliative Care/ Comfort Measures: Not Applicable - Core Measures Any of the following diagnoses?: none Exam - Physical Exam Narrative exam: Mom and baby stable, pt denies lightheadedness and dizziness, no new problems voiced. Fundus firm below U and bleeding scant. Mother desires discharge today. VSSAF. Breast and bottle feeding well. - Constitutional Vitals: Temp Pulse Resp BP Pulse Ox 98.1 F 71 20 111/64 97 01/03/22 04:18 01/03/22 04:18 01/03/22 05:57 01/03/22 04:18 01/03/22 04:18 General appearance: Present: no acute distress - EENT Eyes: Present: PERRL, EOM intact ENT: hearing intact, clear oral mucosa, dentition normal - Neck Neck: Present: supple, normal ROM - Respiratory Respiratory effort: normal - Cardiovascular Rhythm: regular - Extremities Extremities: No edema, Full ROM Peripheral Pulses: within normal limits - Abdominal General gastrointestinal: Present: soft, non-tender, non-distended, normal bowel sounds Female genitourinary: Present: normal - Integumentary Integumentary: Present: clear, warm, dry - Musculoskeletal Musculoskeletal: strength equal bilaterally - Psychiatric Psychiatric: appropriate mood/affect - Neurologic Neurologic: CNII-XII intact Plan Activity: no restrictions Diet: regular Follow up with: MONALISA CHAN MD [Primary Care Provider] - 7 Days (Congratulations! Please call [facility] at [phone] to schedule your 6week appointment and your son's circumcision in one week. Bring emla cream to office and wait for instructions, please call with any questions!) Prescriptions: Lidocain2.5%/Prilocai2.5% [Emla] 5 gm TP ONCE PRN #1 tube PRN Reason: Pain Ibuprofen [Motrin 800 MG tab] 800 mg PO Q8HR PRN #30 tablet PRN Reason: Pain
[2022-01-03] MEDS: DOCUSATE SODIUM 100 MG CAP PO SCH (09:25)
[2022-01-03 16:20] VITALS: BP 135/77
[2022-01-03] MEDS ORDERED: MEASLES, MUMPS & RUBELLA 12,500 UNIT/0.5 ML VACCINE SUB-Q ONE (16:52)
== END 2022-01-03 19:15 | disposition home or self-care (01) | DRG 775 ==
LOC: TRG 01:27 → APU 01:30 → LD 05:36 → TRG 05:36 → OB 23:30
PROVIDERS: ADMIT Obstetrics & Gynecology; ATTEND Obstetrics & Gynecology
PROC: 10E0XZZ Delivery of Products of Conception, External Approach (ICD-10-PCS; principal; 2022-01-01)
PROC: 10907ZC Drainage of Amniotic Fluid, Therapeutic from Products of Conception, Via Natural or Artificial Opening (ICD-10-PCS; 2022-01-01)
PROC: 0HQ9XZZ Repair Perineum Skin, External Approach (ICD-10-PCS; 2022-01-01)
PROC: 3E0R3BZ Introduction of Anesthetic Agent into Spinal Canal, Percutaneous Approach (ICD-10-PCS; 2022-01-01)
PROC: 00HU33Z Insertion of Infusion Device into Spinal Canal, Percutaneous Approach (ICD-10-PCS; 2022-01-01)
PROC: 3E0134Z Introduction of Serum, Toxoid and Vaccine into Subcutaneous Tissue, Percutaneous Approach (ICD-10-PCS; 2022-01-02)
PROC: 3E0234Z Introduction of Serum, Toxoid and Vaccine into Muscle, Percutaneous Approach (ICD-10-PCS; 2022-01-02)
DX: O99.214 Obesity complicating childbirth (principal); O99.892 Other specified diseases and conditions complicating childbirth; O99.344 Other mental disorders complicating childbirth; Z37.0 Single live birth; Z3A.37 37 weeks gestation of pregnancy; Z20.822 Contact with and (suspected) exposure to COVID-19; F31.9 Bipolar disorder, unspecified; F41.9 Anxiety disorder, unspecified; O70.0 First degree perineal laceration during delivery; R00.0 Tachycardia, unspecified
CPT/HCPCS: 36415; 85014; 85018; 85027; 86592; 86850; 86900; 86901; 90707; G0378; J2300; J3010; U0003